=== PATIENT | male | born 1985 | race Caucasian/White ===

== ENCOUNTER 2016-06-14 05:56 | Emergency (ER) | payer MEDICAID ==
[~2016-06-14] VITALS: Ht 165.1 cm; Wt 55.0 kg
[2016-06-14 06:53] VITALS: BP 114/69
[2016-06-14] MEDS ORDERED: PREDNISONE 20MG TABLET PO ONE (07:30)
[2016-06-14] MEDS ORDERED: DIPHENHYDRAMINE 50MG CAPSULE PO ONE (07:30)
[2016-06-14] MEDS ORDERED: CEPHALEXIN 500MG CAPSULE PO ONE (08:30)
== END 2016-06-14 09:09 | disposition home or self-care (01) ==
LOC: ER 07:36
DX: S50.361A Insect bite (nonvenomous) of right elbow, initial encounter (principal); L03.113 Cellulitis of right upper limb; F17.210 Nicotine dependence, cigarettes, uncomplicated; Z88.0 Allergy status to penicillin; W57.XXXA Bitten or stung by nonvenomous insect and other nonvenomous arthropods, initial encounter; Y93.89 Activity, other specified; Y92.9 Unspecified place or not applicable; Y99.8 Other external cause status
CPT/HCPCS: 99284; J7512; Q0163

== ENCOUNTER 2018-02-23 00:08 | Emergency (ER) | payer SELFPAY ==
[~2018-02-23] VITALS: Ht 165.1 cm; Wt 57.0 kg
[2018-02-23] MEDS ORDERED: ACETAMINOPHEN 325MG TABLET PO ONE (01:15)
[2018-02-23] MEDS ORDERED: SODIUM CHLORIDE 0.9% 1,000 ML IV ONE (01:15)
[2018-02-23] MEDS ORDERED: MECLIZINE 25MG TABLET PO ONE (01:15)
[2018-02-23] MEDS ORDERED: METOCLOPRAMIDE HCL 10MG/2ML VIAL IV ONE (01:15)
[2018-02-23 02:43] VITALS: BP 131/71
== END 2018-02-23 02:45 | disposition home or self-care (01) ==
LOC: ER 00:08
DX: R51 Headache (principal); F17.200 Nicotine dependence, unspecified, uncomplicated; Z88.0 Allergy status to penicillin
CPT/HCPCS: 70450; 96361; 96374; 99284; J2765; J7030; J8597

== ENCOUNTER 2020-01-16 09:48 | Emergency (ER) | payer MEDICAID ==
[~2020-01-16] VITALS: Ht 165.1 cm; Wt 50.0 kg
[2020-01-16] MEDS ORDERED: IBUPROFEN 600MG TABLET PO ONE (10:15)
[2020-01-16 10:28] VITALS: BP 116/80
== END 2020-01-16 10:56 | disposition home or self-care (01) ==
LOC: ER 09:56
DX: S20.212A Contusion of left front wall of thorax, initial encounter (principal); X58.XXXA Exposure to other specified factors, initial encounter; Y93.71 Activity, boxing; Y92.89 Other specified places as the place of occurrence of the external cause; Y99.8 Other external cause status; Z88.0 Allergy status to penicillin
CPT/HCPCS: 71045; 99283

== ENCOUNTER 2020-01-16 19:00 | Emergency (ER) | payer MEDICAID ==
[~2020-01-16] VITALS: Ht 160 cm; Wt 56.0 kg
[2020-01-16 19:05] VITALS: BP 111/63
[2020-01-16] MEDS ORDERED: ACETAMINOPHEN 325MG TABLET PO ONE (19:30)
== END 2020-01-16 21:05 | disposition home or self-care (01) ==
LOC: ER 19:00
DX: S93.491A Sprain of other ligament of right ankle, initial encounter (principal); Y08.89XA Assault by other specified means, initial encounter; Y93.89 Activity, other specified; Y92.89 Other specified places as the place of occurrence of the external cause; Y99.8 Other external cause status; Z88.0 Allergy status to penicillin; M25.551 Pain in right hip; M25.512 Pain in left shoulder
CPT/HCPCS: 73030; 73502; 73610; 99284; A4565